=== PATIENT | male | born 1935 | race Caucasian/White ===

== ENCOUNTER 2017-08-30 21:09 | Emergency (ER) | payer MEDICARE, OTHER | END 2017-08-30 21:40 | disposition home or self-care (01) | LOC: NAV ERS 21:09 | DX: S01.01XA Laceration without foreign body of scalp, initial encounter (principal); I10 Essential (primary) hypertension; G30.9 Alzheimer's disease, unspecified; F02.80 Dementia in other diseases classified elsewhere, unspecified severity, without behavioral disturbance, psychotic disturbance, mood disturbance, and anxiety; Z87.891 Personal history of nicotine dependence; Z79.899 Other long term (current) drug therapy | CPT/HCPCS: 12001 ==

== ENCOUNTER 2019-09-16 10:36 | Emergency (ER) | payer MEDICARE, OTHER ==
[2019-09-16] MEDS ORDERED: Sodium Chloride 0.9% 1,000 ML ONE ×2 (11:11→12:02)
[2019-09-16] MEDS ORDERED: Digoxin 0.5 MG/2 ML AMP ONE (11:14)
--- NOTE | 2019-09-16 11:26 | RAD ---
XR Chest 1 View Portable History: Cough Comparison: Radiograph May 03, 2019 Findings: There is a lingular left lower lobe airspace opacity. The left costophrenic sulcus not comp letely evaluated although there is likely a layering left effusion. Right lung is relatively clear. Cardiac silhouette and mediastinal contours are similar. Patient is rotated to the left. Impression: Limited examination as the left lung base and costophrenic sulcus not interrogated there is suspicion of layering left effusion with lingular and left lower lobe consolidation suggesting pneumonia. Follow-up after treatment recommended.
[2019-09-16 11:27] LABS: Bilirubin Negative (Negative); Blood, Urine Trace (Negative); Clarity Cloudy (Clear); Glucose, Urine (Dipstick) Negative (Negative); Leukocyte Trace (Negative); Nitrite Negative (Negative); Protein, Urine (Dipstick) 100 mg/dL (Neg-Trace)
[2019-09-16 11:35] LABS: Bacteria/HPF 1+ HPF (None Seen); RBC/HPF 0-3 HPF (0-3); Squamous Epithelial 0-3 HPF (0-3); WBC/HPF 0-3 HPF (0-3)
[2019-09-16 11:45] LABS: Hemoglobin 14.8 g/dL (14.0-18.0); MDiff Complete? YES; Mean Corpuscular HGB CONC 31.3 g/dL (32.0-36.0); Mean Corpuscular Hemoglobin 28.3 pg (27.0-31.0); Mean Corpuscular Volume 90.4 fL (78.0-98.0); Mean Platelet Volume 6.6 fL (7.4-10.4); Platelet Count 347 thou/uL (130-400); RBC Distribution Width 13.5 % (11.5-14.5); Red Blood Cell (RBC) Count 5.28 mill/uL (4.70-6.10); White Blood Cell (WBC) Count 40.7 thou/uL (4.8-10.8)
[2019-09-16 11:46] LABS: Anisocytosis SLIGHT = 6-15 cells (100X) (0-5/hpf); Burr Cells SLIGHT = 2-5 cells (100X) (0-1/hpf); Ovalocytes SLIGHT = 2-5 cells (100X) (0-1/hpf); Platelet Morphology Comment Appears Adequate
[2019-09-16 11:49] LABS: ALT (SGPT) 60 U/L (8-55); AST (SGOT) 114 U/L (5-34); Albumin 2.9 g/dL (3.4-4.8); Alkaline Phosphatase 111 U/L (40-110); Anion Gap 28 mmol/L (10-20); Bilirubin, Total 2.2 mg/dL (0.2-1.2); Calcium 12.5 mg/dL (7.8-10.44); Carbon Dioxide 17 mmol/L (23-31); Chloride 112 mmol/L (98-107); Globulin 4.7 g/dL (2.4-3.5); Glucose 140 mg/dL (83-110); Potassium 5.1 mmol/L (3.5-5.1); Protein, Total 7.6 g/dL (5.8-8.1); Sodium 152 mmol/L (136-145)
[2019-09-16] MEDS ORDERED: cefTRIAXone\\ROCEPHIN 2 GM VIAL ONE (11:50)
[2019-09-16] MEDS ORDERED: Sodium Chloride 0.9% 100 ML ONE (11:50)
[2019-09-16 12:10] LABS: BUN (Urea Nitrogen) 140 mg/dL (8.4-25.7)
[2019-09-16 12:14] LABS: Calc. Creatinine Clearance 0 mL/min (70-130); Estimated GFR-MDRD 10
[2019-09-16] MEDS ORDERED: Sodium Chloride 0.9% 250 ML 250 ML ONE (12:31)
[2019-09-16] MEDS ORDERED: Azithromycin 500 MG VIAL ONE (12:31)
== END 2019-09-16 12:47 | disposition short-term general hospital (02) ==
LOC: NAV ERS 10:36
DX: J18.9 Pneumonia, unspecified organism (principal); R65.21 Severe sepsis with septic shock; Z87.891 Personal history of nicotine dependence
CPT/HCPCS: 51701; 71045; 80053; 81003; 81015; 83605; 83880; 85025; 87040; 87077; 87086; 87149; 87186; 93005; 94640; 96360; 96361; 96365; 96375; 99292; J0456; J0696; J1160; J3490; J7050; J7620